=== PATIENT | male | born 1945 | race Caucasian/White ===

== ENCOUNTER 2024-01-14 20:54 | Emergency (ER) | payer MEDICAID, MEDICARE ==
[~2024-01-14] VITALS: Ht 175.3 cm; Wt 61.6 kg
[2024-01-14 21:31] VITALS: TEMP 97.7
[2024-01-14 21:53] LABS: BASOPHILS % (AUTO) 0.8 % (0.0-2.0); EOSINOPHILS % (AUTO) 1.1 % (1.0-6.0); HEMATOCRIT 44.7 % (41-53); HEMOGLOBIN 15.1 g/dL (13.5-17.5); LYMPHOCYTES # (AUTO) 2.4 K/uL (1.0-4.8); LYMPHOCYTES % (AUTO) 24.3 % (22.0-44.0); MEAN CORPUSCULAR HEMOGLOBIN 31.7 pg (26.0-34.0); MEAN CORPUSCULAR HGB CONC 33.8 G/dL (31.0-37.0); MEAN CORPUSCULAR VOLUME 94 fL (80-100); MONOCYTES # (AUTO) 0.8 K/uL (0.1-1.0); MONOCYTES % (AUTO) 7.6 % (2.0-9.0); NEUTROPHILS # (AUTO) 6.7 K/uL (1.8-7.7); NEUTROPHILS % (AUTO) 66.2 % (40.0-70.0); PLATELET COUNT (AUTO) 303 K/uL (150-450); RED BLOOD CELL COUNT(AUTO) 4.77 MIL/uL (4.50-5.90)
[2024-01-14 22:02] LABS: ANION GAP 9 mmol/L (8-16); CALCIUM, TOTAL 9.2 mg/dL (8.8-10.5); CARBON DIOXIDE 27 mmol/L (22-29); CHLORIDE 98 mmol/L (98-107); CREATININE 0.85 mg/dL (0.60-1.30); GLOMERULAR FILTR. RATE CALC > 60 mL/min (>60); GLUCOSE,RANDOM 101 mg/dL (70-110); POTASSIUM 3.9 mmol/L (3.5-5.1); SODIUM SERUM 134 mmol/L (136-145); UREA NITROGEN, BLOOD 28 mg/dL (7-18)
[2024-01-14 22:05] LABS: ALCOHOL, BLOOD (SERUM) < 3 mg/dL (0-10)
[2024-01-14 22:25] LABS: B-TYPE NATRIURETIC PEPTIDE 313 pg/mL (0-100); TROPONIN I-HIGH SENSITIVITY 15 ng/L (<76)
[2024-01-14 22:28] LABS: ALANINE AMINOTRANSFERASE 26 U/L (12-78); ALBUMIN 3.6 g/dL (3.4-5.0); ALKALINE PHOSPHATASE 100 U/L (46-116); ASPARTATE AMINOTRANSFERASE 33 U/L (15-37); BILIRUBIN,TOTAL 0.3 mg/dL (0.1-1.0); CREATINE KINASE, TOTAL ONLY 175 U/L (39-308); TOTAL PROTEIN, SERUM 8.2 g/dL (6.4-8.2)
[2024-01-14] MEDS: ONDANSETRON HCL 4 MG/2 ML VIAL IVP ONE (22:58)
[2024-01-14] MEDS: NALOXONE HCL 1 MG/ML 2 ML SYRINGE IVP ONE (23:00)
[2024-01-14] MEDS: KETOROLAC TROMETHAMINE 30 MG/ML VIAL IVP ONE (23:12)
[2024-01-14] MEDS: HYDROCHLOROTHIAZIDE 25 MG TABLET PO ONE (23:21)
[2024-01-14] MEDS ORDERED: BUPR1TAB46 SL (23:45)
[2024-01-15] MEDS: LORazepam 2 MG/ML VIAL IVP ONE (00:05)
[2024-01-15 00:31] VITALS: BP 143/70; PULSE 57; RESP 16
== END 2024-01-15 00:58 | disposition home or self-care (01) ==
LOC: EMS 21:22
DX: T40.411A Poisoning by fentanyl or fentanyl analogs, accidental (unintentional), initial encounter (principal); F11.20 Opioid dependence, uncomplicated; I10 Essential (primary) hypertension; F17.210 Nicotine dependence, cigarettes, uncomplicated; Y92.89 Other specified places as the place of occurrence of the external cause
CPT/HCPCS: 99285; 96374; 71045; 96375 ×2; 80053; 82550; 83880; 84484; 85025; 93005; G0480; J1885; J2060; J2310; J2405; 36415-L1; 36415-TC

== ENCOUNTER → 2024-08-23 | Emergency (ER) | payer MEDICARE, OTHER ==
[~2024-08-23] VITALS: Ht 167.6 cm; Wt 67.7 kg
[~2024-08-23] MED LIST: BUPR1TAB46 SL; PERTUSS(ACELL),DIPH,TET/PF 0.5 ML SYRINGE [ADULT] IM. ONE; VANCOMYCIN 1.75GM/WATER(PEG) 350 ML IV ONE
[2024-08-23 16:33] VITALS: TEMP 97.8
[2024-08-23 19:44] VITALS: BP 107/60; PULSE 75; RESP 21; O2SAT 94
[2024-08-23] MEDS: DOXYCYCLINE HYCLATE 100 MG TABLET PO ONE (20:29)
[2024-08-23 21:25] LABS: BASOPHILS % (AUTO) 0.3 % (0.0-2.0); EOSINOPHILS % (AUTO) 0.3 % (1.0-6.0); HEMATOCRIT 42.2 % (41-53); HEMOGLOBIN 14.1 g/dL (13.5-17.5); LYMPHOCYTES # (AUTO) 1.6 K/uL (1.0-4.8); LYMPHOCYTES % (AUTO) 11.2 % (22.0-44.0); MEAN CORPUSCULAR HEMOGLOBIN 31.7 pg (26.0-34.0); MEAN CORPUSCULAR HGB CONC 33.3 G/dL (31.0-37.0); MEAN CORPUSCULAR VOLUME 95 fL (80-100); MONOCYTES # (AUTO) 1.1 K/uL (0.1-1.0); MONOCYTES % (AUTO) 7.3 % (2.0-9.0); NEUTROPHILS # (AUTO) 11.8 K/uL (1.8-7.7); NEUTROPHILS % (AUTO) 80.9 % (40.0-70.0); PLATELET COUNT (AUTO) 282 K/uL (150-450); RED BLOOD CELL COUNT(AUTO) 4.44 MIL/uL (4.50-5.90); RED CELL DISTRIBUTION WIDTH 13.9 % (11.5-14.5); WHITE BLOOD COUNT (AUTO) 14.5 K/uL (4.5-11.0)
[2024-08-23 21:34] LABS: ANION GAP 5 mmol/L (8-16); CALCIUM, TOTAL 8.6 mg/dL (8.8-10.5); CARBON DIOXIDE 27 mmol/L (22-29); CHLORIDE 99 mmol/L (98-107); CREATININE 0.88 mg/dL (0.60-1.30); GLOMERULAR FILTR. RATE CALC > 60 mL/min (>60); GLUCOSE,RANDOM 104 mg/dL (70-110); POTASSIUM 4.4 mmol/L (3.5-5.1); SODIUM SERUM 131 mmol/L (136-145); UREA NITROGEN, BLOOD 27 mg/dL (7-18)
[2024-08-23 22:42] LABS: ALANINE AMINOTRANSFERASE 15 U/L (12-78); ALBUMIN 2.9 g/dL (3.4-5.0); ALKALINE PHOSPHATASE 70 U/L (46-116); ASPARTATE AMINOTRANSFERASE 19 U/L (15-37); BILIRUBIN,TOTAL 0.9 mg/dL (0.1-1.0); TOTAL PROTEIN, SERUM 6.9 g/dL (6.4-8.2)
[2024-08-23 22:46] LABS: LACTIC ACID 0.8 mmol/L (0.4-2.0)
[2024-08-24 00:17] LABS: COVID AG,FIA SOURCE NASAL SWAB
[2024-08-24 00:26] LABS: INFLUENZA TYPE A NEGATIVE FOR TYPE A (NEGATIVE); INFLUENZA TYPE B NEGATIVE FOR TYPE B (NEGATIVE); SARS-COV2 (COVID) ANTIGEN,FIA Negative (Negative)
== END | disposition short-term general hospital (02) ==
LOC: EMS 16:18
DX: L02.413 Cutaneous abscess of right upper limb (principal); L03.113 Cellulitis of right upper limb; I10 Essential (primary) hypertension; F12.90 Cannabis use, unspecified, uncomplicated; E87.1 Hypo-osmolality and hyponatremia; Z20.822 Contact with and (suspected) exposure to COVID-19
CPT/HCPCS: 80048; 80076; 83605; 85025; 87040; 87070; 87205; 87804; 99285

== ENCOUNTER 2025-03-23 17:48 | Emergency (ER) | payer MEDICARE, OTHER ==
[~2025-03-23] VITALS: Ht 175.3 cm; Wt 59.1 kg
[~2025-03-23 17:48] MED LIST changes: +AMLO5TAB66 PO; -PERTUSS(ACELL),DIPH,TET/PF 0.5 ML SYRINGE [ADULT] IM. ONE; -VANCOMYCIN 1.75GM/WATER(PEG) 350 ML IV ONE
[2025-03-23 17:54] VITALS: TEMP 98.3
[2025-03-23] MEDS ORDERED: ACET-2247 PO (21:25)
[2025-03-23] MEDS ORDERED: BUPR1TAB46 SL (21:25)
[2025-03-23 21:38] VITALS: BP 138/71; PULSE 72; RESP 18; O2SAT 99
[2025-03-23] MEDS: ACETAMINOPHEN 500 MG TABLET PO ONE (21:43)
[2025-03-23] MEDS: BUPRENORPHINE HCL/NALOXONE HCL 8-2 MG SUBLINGUAL TABLET SL ONE (21:44)
== END 2025-03-23 22:20 | disposition home or self-care (01) ==
LOC: EMS 17:48
DX: G89.29 Other chronic pain (principal); M54.50 Low back pain, unspecified; I10 Essential (primary) hypertension; F12.90 Cannabis use, unspecified, uncomplicated; Z79.899 Other long term (current) drug therapy
CPT/HCPCS: 99283

== ENCOUNTER 2025-04-09 13:54 | Emergency (ER) | payer MEDICARE, OTHER ==
[~2025-04-09] VITALS: Ht 167.6 cm; Wt 57.0 kg
[~2025-04-09 13:54] MED LIST changes: +ACET-2247 PO
[2025-04-09 14:19] VITALS: BP 110/79; PULSE 54; RESP 16; TEMP 97.9; O2SAT 98
== END 2025-04-09 14:41 | disposition home or self-care (01) ==
LOC: EMS 13:57
DX: F11.10 Opioid abuse, uncomplicated (principal); F12.90 Cannabis use, unspecified, uncomplicated; F15.90 Other stimulant use, unspecified, uncomplicated; I10 Essential (primary) hypertension; G89.29 Other chronic pain; Z79.899 Other long term (current) drug therapy
CPT/HCPCS: 99281; 99282; Z7502